=== PATIENT | female | born 1995 | race Asian ===

== ENCOUNTER → 2016-11-20 | Outpatient (CLI) | payer OTHER ==
--- NOTE | 2016-11-20 12:44 | MAMMOGRAPHY REPORT ---
UNILATERAL RIGHT DIGITAL DIAGNOSTIC MAMMOGRAM TOMOSYNTHESIS WITH CAD AND TARGETED RIGHT ULTRASOUND: CLINICAL HISTORY: 21-year-old woman with a palpable mass in the 6:00 subareolar right breast. Patien t denies skin erythema or nipple discharge. She reports her left nipple is slightly retracted. Fami ly history of breast cancer = mother at age 47. TECHNIQUE: Right breast tomosynthesis in addition to standard 2D mammography was performed. Current s carl was also evaluated with a Computer Aided Detection (CAD) system. COMPARISON: No prior exams were available for comparison. BREAST COMPOSITION: The tissue of the right breast is extremely dense, which lowers the sensitivity of mammography. FINDINGS: First targeted ultrasound was performed in the area of palpable lump pointed out by the pa tient, within the 6:00 subareolar/periareolar right breast. In the area of palpable concern, there i s a discrete oval parallel circumscribed hypoechoic solid versus cystic mass measuring 6.0 x 3.9 x 5. 6 mm. There are echogenic reflectors within the mass which could represent microcalcifications. No significant duct ectasia is identified. Given the possible calcifications within the mass and family history of breast cancer, unilateral right mammography was also performed. Right CC and MLO 2-D and, synthesis images were obtained. A trying call palpable marker overlies the 6:00 anterior right breast. There are a few scattered benign rounded calcifications in the right br east. No suspicious grouping or clustered micro-calcifications is seen to correlate with the possibl e calcifications within the palpable mass. Overall, there is no definite mammographic evidence of ma lignancy or other suspicious finding. IMPRESSION: ACR BI-RADS CATEGORY 4: SUSPICIOUS, TARGETED ULTRASOUND ACR BI-RADS CATEGORY 4: SUSPICIO US 1. There is an indeterminate solid versus cystic 6 mm mass in the 6:00 periareolar right breast, cor relating with the palpable lump pointed out by the patient. Definitive characterization with an ultr asound-guided core needle biopsy is recommended. These results and recommendations were discussed with the patient at the time of the exam. She would prefer to have the biopsy in her hometown in [place] and will be provided with her right breast mammog serjio and ultrasound images. Approximately 10% of breast cancers are not detected with mammography. A negative mammographic report should not delay biopsy if a clinically suggestive mass is present. [place] Guillory M.D. ay/:11/20/2016 12:03:00 Senior Water Resources Engineer: Bhargavi CORMIER)(Humberto), [facility] letter sent: Abnormal 4/5 BI-RADS Code: ACR BI-RADS Category 4: Suspicious Ultrasound BI-RADS: ACR BI-RADS Category 4: Suspici ous
== END | disposition home or self-care (01) ==
LOC: C.MAMM 10:39
PROVIDERS: ATTEND Nurse Practitioner Obstetrics & Gynecology
DX: N63 Unspecified lump in breast (principal)